=== PATIENT | male | born 2005 | race Caucasian/White ===

== ENCOUNTER 2025-04-24 17:28 | Emergency (ER) | payer BC, SELFPAY ==
[2025-04-24 17:33] VITALS: BP 120/84; PULSE 99; RESP 18; TEMP 36.1; O2SAT 97; BMI 22.6
[2025-04-24] MEDS: LIDOCAINE/EPINEP/TETRACAINE 3 ML GEL..ML. TOPICAL (17:40)
--- NOTE | 2025-04-24 18:14 | ED.WOUNDLAC ---
HPI - Wound/Laceration General Chief Complaint: Laceration/Wound Stated Complaint: Upper lip laceration Time Seen by Provider: 04/24/25 17:29 Source: patient Mode of arrival: ambulatory Limitations: no limitations History of Present Illness HPI narrative: Patient is a 19-year-old male presenting to the emergency department for lip laceration. Is about 0.75 cm in length. It occurred today after throwing his helmet and bounced back hitting him in the face. He was playing baseball at that time. This occurred roughly an hour prior to arrival. Last tetanus was 1 year ago. No other concerns noted Related Data Home Medications ?Medication ?Instructions ?Recorded ?Confirmed No Known Home Medications 09/29/24 10/19/24 Allergies Allergy/AdvReac Type Severity Reaction Status Date / Time No Known Drug Allergies Allergy Verified 10/19/24 14:24 Review of Systems Narrative: Pertinent systems reviewed and were negative unless stated in HPI PFSH PFSH Surgical History History of fracture of nasal bone ?Z87.81 - Personal history of (healed) traumatic fracture (ICD-10) History of adenoidectomy (2011) ?Z90.89 - Acquired absence of other organs (ICD-10) History of placement of ear tubes (2011) ?Z96.22 - Myringotomy tube(s) status (ICD-10) Social History Smoking Status: Never smoker Exam Narrative: Exam Narrative: Const: Well-nourished, Well-developed, in no distress Eyes: PERRL, no conjunctival injection, and symmetrical lids HENT: Atraumatic external nose and ears. Moist mucous membranes. 0.75 cm laceration to his right upper lip that crosses the vermilion border MSK:Extremities w/o deformity, Normal Active ROM Skin: Warm, Dry. No rashes or lesions. Neuro: Normal Muscle tone, No focal neurological deficits. Psych: Awake, Alert, & Oriented x3. Appropriate mood and affect. Const: Vital Signs, click to edit/add: Vital Signs - 24 hr 04/24/25 17:33 Temperature 97.0 F L Pulse Rate [Pulse Oximeter] 99 Respiratory Rate 18 Blood Pressure [Ri ght Upper Arm] 120/84 Pulse Oximetry 97 Oxygen Delivery Me thod Room Air Course Vital Signs Vital signs: Initial Vital Signs Temperature 97.0 F L 04/24/25 17:33 Temperature Source Temporal Artery Scan 04/24/25 17:33 Pulse Rate 99 04/24/25 17:33 Respiratory Rate 18 04/24/25 17:33 Blood Pressure 120/84 04/24/25 17:33 Blood Pressure Mean 96 04/24/25 17:33 Blood Pressure Position Sitting 04/24/25 17:33 Pulse Oximetry 97 04/24/25 17:33 Oxygen Delivery Method Room Air 04/24/25 17:33 Vital Signs Temperature 97.0 F L 04/24/25 17:33 Pulse Rate 99 04/24/25 17:33 Respiratory Rate 18 04/24/25 17:33 Blood Pressure 120/84 04/24/25 17:33 Pulse Oximetry 97 04/24/25 17:33 Oxygen Delivery Method Room Air 04/24/25 17:33 Temperature 97.0 F L 04/24/25 17:33 Pulse Rate 99 04/24/25 17:33 Respiratory Rate 18 04/24/25 17:33 Blood Pressure 120/84 04/24/25 17:33 Pulse Oximetry 97 04/24/25 17:33 Oxygen Delivery Method Room Air 04/24/25 17:33 Medications Administered Medications: Generic Name Dose Route Start Last Admin Trade Name Freq PRN Reason Stop Dose Admin Lidocaine/Epinephrine/Tetracaine 3 ml 04/24/25 17:33 04/24/25 17:40 Lidocaine/Epinep/Tetracaine 3 Ml Gel..Ml. TOPICAL 04/24/25 17:34 3 ml ONCE ONE Administration MDM - Wound/Laceration MDM Narrative Medical decision making narrative: Patient is a 19-year-old male presenting for lip laceration. Wound was clean. He has no other complaints. He tolerated the wound closure. He will be discharged. Antibiotics were not necessary. Tetanus is up-to-date. Discharge Plan Discharge Clinical Impression: Laceration Patient Disposition: Home, Self-Care Condition: Stable Additional Instructions: Sutures should fall out in the next 7-10 days. If they do not I recommend following up with your PCP or urgent care to have them removed. For next 6 months, once sutures are removed, whenever you go outside put a dab of sunscreen over the laceration site to improve scar appearance. Topical antibiotics are not necessary at this time. Patient can shower but do not submerge the laceration in standing water until sutures are removed Prescriptions: No Action No Known Home Medications Follow Up/Referrals: Yesenia Cochran APRN, GRILL ATTENDANT [Primary Care Provider, Family Practice] Stand Alone Forms: [facility] Info Instructions Procedures Laceration Lip: Name of person performing procedure: Gilbert Yi Site: lip Side (If applicable): right Description: linear, clean and involves jamey border Depth: simple, single layer Local Anesthetic: other anesthetic (Let) Pre-repair: wound explored and irrigated extensively Skin layer closed with: other (Fast-absorbing gut) Size (cm): 5-0 Number of sutures: 3 Technique: simple, interrupted
== END 2025-04-24 18:23 | disposition home or self-care (01) ==
PROVIDERS: Emergency Provider Student in an Organized Health Care Education/Training Program; PCP Nurse Practitioner Family
DX: S01.511A Laceration without foreign body of lip, initial encounter (principal); W21.89XA Striking against or struck by other sports equipment, initial encounter; Y93.64 Activity, baseball
CPT/HCPCS: 12011; 99283

== ENCOUNTER 2025-04-25 18:08 | Emergency (ER) | payer BC, SELFPAY ==
[2025-04-25 18:29] VITALS: BP 118/73; PULSE 59; RESP 16; TEMP 36.8; O2SAT 59; BMI 22.6
--- NOTE | 2025-04-25 18:47 | ED_ITS ---
HPI - General Adult General Chief complaint: Unspecified Complaint, Adult Stated complaint: Had stitched here yesterday in Lip, falling out Time Seen by Provider: 04/25/25 18:36 History of Present Illness HPI narrative: This 19-year-old male had a laceration to his upper lip that was repaired yesterday. He comes in today because 2 of the 3 sutures fell out. His wound involved a laceration across the upper lip line. He had 3 sutures placed nicely using absorbable suture. The upper and lower sutures fell out and the middle 1 is yet intact. He is wondering if he needs further repair of this wound again. Related Data Home Medications ?Medication ?Instructions ?Recorded ?Confirmed No Known Home Medications 09/29/2410/03 Allergies Allergy/AdvReac Type Severity Reaction Status Date / Time No Known Drug Allergies Allergy Verified 10/19/24 14:24 Review of Systems Status of ROS: Reports: 10 or more systems reviewed and unremarkable except as noted in History and below Narrative: Constitutional: No fevers, no weight gain or loss. Eyes: No discharge. No vision changes. HENT: No congestion, no sore throat, no ear pain. Cardiovascular: No chest pain, no palpitations. Respiratory: No shortness of breath, no wheezes, no cough. Gastrointestinal: No abdominal pain, no vomiting, no diarrhea. Genitourinary: No dysuria, no hematuria. Musculoskeletal: Normal range of motion. Skin: No rashes, no pruritis. Neurological: No dizziness, weakness, sensory change, speech change. Endo/Heme/Allergies: No bruising or bleeding. No polydipsia. Pysch: no suicidality, no anxiety, no insomnia. All other systems reviewed and are negative. PFSH PFSH Surgical History History of fracture of nasal bone ?Z87.81 - Personal history of (healed) traumatic fracture (ICD-10) History of adenoidectomy (2011) ?Z90.89 - Acquired absence of other organs (ICD-10) History of placement of ear tubes (2011) ?Z96.22 - Myringotomy tube(s) status (ICD-10) Social History Smoking Status: Never smoker Exam Narrative: Exam Narrative: Constitutional: Well-developed, well-nourished, no acute distress. HEENT: 1 cm linear laceration across the lip line of the upper lip. The middle suture is in place and the wound itself is intact without any sign of compromise. Neck: Normal range of motion. Nontender. Supple. Heart: Intact distal pulses. Lungs: No chest discomfort. No wheezes, rhonchi, or rales. Abdomen: Nontender. Back: Normal range of motion. Extremities: Normal range of motion. No injury. Skin: Intact. No rash. Warm. No erythema or pallor. Neurologic: No altered sensation. No weakness. Alert and oriented. Psychiatric: No suicidality. No anxiety or depression. No insomnia. Nursing notes and vitals signs are reviewed. Const: Vital Signs, click to edit/add: Vital Signs - 24 hr 04/25/25 18:29 Temperature 98.3 F Pulse Rate [Pulse Oximeter] 59 L Respiratory Rate 16 Blood Pressure [Le ft Upper Arm] 118/73 Pulse Oximetry 59 L Oxygen Delivery Me thod Room Air Course Vital Signs Vital signs: Initial Vital Signs Temperature 98.3 F 04/25/25 18:29 Temperature Source Temporal Artery Scan 04/25/25 18:29 Pulse Rate 59 L 04/25/25 18:29 Pulse Rhythm Regular 04/25/25 18:29 Respiratory Rate 16 04/25/25 18:29 Blood Pressure 118/73 04/25/25 18:29 Blood Pressure Mean 88 04/25/25 18:29 Blood Pressure Position Sitting 04/25/25 18:29 Pulse Oximetry 59 L 04/25/25 18:29 Oxygen Delivery Method Room Air 04/25/25 18:29 Vital Signs Temperature 98.3 F 04/25/25 18:29 Pulse Rate 59 L 04/25/25 18:29 Respiratory Rate 16 04/25/25 18:29 Blood Pressure 118/73 04/25/25 18:29 Pulse Oximetry 59 L 04/25/25 18:29 Oxygen Delivery Method Room Air 04/25/25 18:29 Temperature 98.3 F 04/25/25 18:29 Pulse Rate 59 L 04/25/25 18:29 Respiratory Rate 16 04/25/25 18:29 Blood Pressure 118/73 04/25/25 18:29 Pulse Oximetry 59 L 04/25/25 18:29 Oxygen Delivery Method Room Air 04/25/25 18:29 Medical Decision Making MDM Narrative Medical decision making narrative: This patient had a laceration to his upper lip repaired yesterday with absorbable sutures. Two of those sutures have fallen out and the patient is wondering if further attention is needed as this wound does cross his upper lip line. I did examine the wound with magnification in I can see very clearly that 2 of the sutures have dislodged. The middle suture is intact and the wound itself is healing normally. The alignment of his upper lip line is very nicely done. I recommended the patient that no further repair is beneficial but cautioned him that the wound is not yet strong. He is agreeable to this plan. Discharge Plan Discharge Clinical Impression: Laceration of lip Patient Disposition: Home, Self-Care Condition: Stable Additional Instructions: Keep wound clean and dry. Avoid stressing the wound as it is not yet back to full strength. Follow up with MD return if worsening. Prescriptions: No Action No Known Home Medications Follow Up/Referrals: Yesenia Cochran APRN, FACTORY SUPERINTENDENT [Primary Care Provider, Family Practice] Stand Alone Forms: [employer] Info Instructions
== END 2025-04-25 19:26 | disposition home or self-care (01) ==
PROVIDERS: Emergency Provider Emergency Medicine Emergency Medical Services; PCP Nurse Practitioner Family
DX: S01.511D Laceration without foreign body of lip, subsequent encounter (principal)
CPT/HCPCS: 99282; 99284